=== PATIENT | female | born 1995 | race African-American/Black ===

== ENCOUNTER 2017-06-02 23:09 | Emergency (ER) | payer OTHER ==
[~2017-06-02] VITALS: Ht 175.3 cm; Wt 135.6 kg
[2017-06-02 23:44] VITALS: BP 147/99
[2017-06-02] MEDS ORDERED: SPIR50TA2 PO (23:50)
[2017-06-02] MEDS ORDERED: FAMO40TA61 PO (23:50)
[2017-06-02] MEDS ORDERED: ESCI5TAB PO (23:50)
[2017-06-02] MEDS ORDERED: TRAZ100T15 PO (23:50)
[2017-06-02] MEDS ORDERED: FENO43CA3 PO (23:50)
[2017-06-02] MEDS ORDERED: AMLO10TA2 PO (23:50)
[2017-06-03 00:23] LABS: HEMATOCRIT 41.8 % (34.6-47.8); HEMOGLOBIN 14.3 g/dL (11.7-16.4)
[2017-06-03 00:35] LABS: ASPARTATE AMINO TRANSFERASE 44 U/L (15-37); BLOOD UREA NITROGEN 8 mg/dL (7-18)
== END 2017-06-03 01:01 | disposition home or self-care (01) ==
LOC: ED 23:59
DX: K64.8 Other hemorrhoids (principal); I10 Essential (primary) hypertension
CPT/HCPCS: 36415; 80053; 84703; 85025; 85610; 99284